=== PATIENT | female | born 1960 | race Caucasian/White ===

== ENCOUNTER 2019-02-24 16:30 | Emergency (ER) | payer MEDICARE, OTHER ==
[~2019-02-24] VITALS: Ht 177.8 cm; Wt 81.6 kg
[2019-02-24] MEDS ORDERED: SYNTHROID200 MCG ORAL (16:35)
[2019-02-24] MEDS ORDERED: GLUCOPHAGE1000 MG ORAL (16:35)
[2019-02-24] MEDS ORDERED: DIVALPROEX SOD250 MG PO (16:35)
[2019-02-24] MEDS ORDERED: VENLAFAXINE H37.5 M2 ORAL (16:35)
[2019-02-24] MEDS ORDERED: LOSARTAN POTAS100 MG ORAL (16:35)
[2019-02-24] MEDS ORDERED: Cefepime HCl 2 GM in NS 110 ML IV SCH (17:00)
[2019-02-24 17:07] VITALS: BP 135/109
--- NOTE | 2019-02-24 17:07 | NUR ---
ED Nurse Note: Pt BIBA from [facility] due to Elevated temperature and elevated HR. Rectal temp 98.3F upon arrival, HR 138, ERMD aware. AOx1, open eyes spontaneously and withdraws to pain. Pt has a sacral pressure ulcer wound. Heel protectors on bilateral heels but no wounds. Will cont to monitor.
[2019-02-24 17:31] LABS: APPEARANCE,URINE SLIGHTLY CLOUDY; BILIRUBIN, URINE NEGATIVE (NEGATIVE); COLOR,URINE AMBER; GLUCOSE, URINE (UA) NEGATIVE (NEGATIVE); KETONES,URINE NEGATIVE (NEGATIVE); LEUKOCYTE ESTERASE ,URINE 2+ (NEGATIVE); NITRITE,URINE NEGATIVE (NEGATIVE); PH,URINE 5 (4.5-8.0); PROTEIN,URINE 1+ (NEGATIVE); UROBILINOGEN,URINE 1 MG/DL (0.0-1.0)
[2019-02-24 17:38] VITALS: BP 120/63
[2019-02-24 17:40] LABS: ANION GAP 10 mmol/L (5-15); BLOOD UREA NITROGEN 28 mg/dL (7-18); CALCIUM 9.2 MG/DL (8.5-10.1); CARBON DIOXIDE 31 MMOL/L (21-32); CHLORIDE 94 MMOL/L (98-107); CREATININE 0.7 MG/DL (0.55-1.30); POTASSIUM 4.3 MMOL/L (3.5-5.1); SODIUM 135 MMOL/L (136-145)
[2019-02-24 17:49] LABS: HEMATOCRIT 32.2 % (37.0-47.0); HEMOGLOBIN 10.5 G/DL (12.0-16.0); MEAN CORPUSCULAR VOLUME 78 FL (80-99); PLATELET COUNT 698 K/UL (150-450); RED BLOOD COUNT 4.12 M/UL (4.20-5.40); RED CELL DISTRIBUTION WIDTH 14.1 % (11.6-14.8); WHITE BLOOD COUNT 21.4 K/UL (4.8-10.8)
--- NOTE | 2019-02-24 18:11 | NUR ---
ED Nurse Note: Lactic Reflex drawn and sent to lab.
[2019-02-24 18:23] LABS: ALANINE AMINOTRANSFERASE 31 U/L (12-78); ALBUMIN/GLOBULIN RATIO 0.5 (1.0-2.7); ALKALINE PHOSPHATASE 97 U/L (46-116); ASPARTATE AMINO TRANSFERASE 49 U/L (15-37); BILIRUBIN,TOTAL 0.5 MG/DL (0.2-1.0); CREATINE KINASE 76 U/L (26-308)
--- NOTE | 2019-02-24 18:39 | Emergency Room Report ---
History of Present Illness General Chief Complaint: Fever Source: Medical Record, EMS Present Illness HPI This patient presents from a [facility] facility for an elevated heart rate and a fever. This patient is nonverbal. She has a history of bipolar disorder, diabetes, high blood pressure. The patient would not speak to me at all. No other history is available. Allergies: Coded Allergies: AMOXICILLIN (Verified Allergy, Unknown, 02/24/19) Patient History Past Medical History: see triage record, DM, HTN, psych hx - Bipolar d/o, other - Hypothyroid Social History: Denies: smoking, alcohol use, drug use Reviewed Nursing Documentation: PMH: Agreed; PSxH: Agreed Nursing Documentation-PMH Hx Hypertension: Yes Hx Diabetes: Yes - HYPOTHYRODISM Review of Systems All Other Systems: limited Physical Exam Vital Signs Date Time Temp Pulse Resp B/P (MAP) Pulse Ox O2 Delivery O2 Flow Rate FiO2 02/24/19 16:26 99.9 142 20 110/74 (86) 95 Room Air Sp02 EP Interpretation: reviewed, normal General Appearance: no apparent distress, alert, GCS 15, non-toxic, Chronically Ill Head: normocephalic, atraumatic Eyes: bilateral eye normal inspection ENT: no angioedema Neck: normal inspection, full range of motion Respiratory: chest non-tender, lungs clear, normal breath sounds, no respiratory distress, no retraction, no accessory muscle use, speaking full sentences Cardiovascular #1: no edema, tachycardia Gastrointestinal: normal bowel sounds, non tender, soft, non-distended, no guarding, no rebound Rectal: deferred Musculoskeletal: back normal, gait/station normal, normal range of motion, non- tender Neurologic: alert, grossly normal Psychiatric: other - Flat, refusing to communicate Skin: no rash, warm/dry, well hydrated, pallor Medical Decision Making Diagnostic Impression: Primary Impression: Pyelonephritis Additional Impressions: Sepsis Tachycardia Lactic acidosis ER Course This patient meets criteria for sepsis. She has a urinary tract infection, elevated white blood cell count and is tachycardic. She was febrile earlier today at the correction facility. She is given aggressive IV fluids and broad-spectrum antibiotics. She did have significant improvement in her heart rate from the 140s on arrival to the 110s. Her blood pressure remained stable. The patient is a [place] patient so she was transferred to [place] via [facility]. This patient is critically ill. This patient required complex medical decision- making, aggressive intervention, extensive laboratory workup and monitoring. Critical care time: 40 minutes. Laboratory Tests Test 02/24/19 16:45 02/24/19 17:00 02/24/19 18:00 White Blood Count 21.4 K/UL (4.8-10.8) H Red Blood Count 4.12 M/UL (4.20-5.40) L Hemoglobin 10.5 G/DL (12.0-16.0) L Hematocrit 32.2 % (37.0-47.0) L Mean Corpuscular Volume 78 FL (80-99) L Mean Corpuscular Hemoglobin 25.6 PG (27.0-31.0) L Mean Corpuscular Hemoglobin Concent 32.7 G/DL (32.0-36.0) Red Cell Distribution Width 14.1 % (11.6-14.8) Platelet Count 698 K/UL (150-450) H Mean Platelet Volume 4.7 FL (6.5-10.1) L Neutrophils (%) (Auto) % (45.0-75.0) Lymphocytes (%) (Auto) % (20.0-45.0) Monocytes (%) (Auto) % (1.0-10.0) Eosinophils (%) (Auto) % (0.0-3.0) Basophils (%) (Auto) % (0.0-2.0) Sodium Level 135 MMOL/L (136-145) L Potassium Level 4.3 MMOL/L (3.5-5.1) Chloride Level 94 MMOL/L (98-107) L Carbon Dioxide Level 31 MMOL/L (21-32) Anion Gap 10 mmol/L (5-15) Blood Urea Nitrogen 28 mg/dL (7-18) H Creatinine 0.7 MG/DL (0.55-1.30) Estimate Glomerular Filtration Rate > 60 mL/min (>60) Glucose Level 106 MG/DL (74-106) Lactic Acid Level 3.00 mmol/L (0.4-2.0) H 1.80 mmol/L (0.66-2.22) Calcium Level 9.2 MG/DL (8.5-10.1) Total Bilirubin 0.5 MG/DL (0.2-1.0) Aspartate Amino Transferase (AST) 49 U/L (15-37) H Alanine Aminotransferase (ALT) 31 U/L (12-78) Alkaline Phosphatase 97 U/L (46-116) Total Creatine Kinase 76 U/L (26-308) Creatine Kinase MB 1.0 NG/ML (0.0-3.6) Creatine Kinase MB Relative Index 1.3 Troponin I 0.131 ng/mL (0.000-0.056) Total Protein 6.0 G/DL (6.4-8.2) L Albumin 2.0 G/DL (3.4-5.0) L Globulin 4.0 g/dL Albumin/Globulin Ratio 0.5 (1.0-2.7) L Thyroid Stimulating Hormone (TSH) 1.109 uiU/mL (0.358-3.740) Free Thyroxine 1.58 NG/DL (0.76-1.46) H Free Triiodothyronine 1.2 pg/mL (2.3-4.2) L Urine Color Anika Urine Appearance Slightly cloudy Urine pH 5 (4.5-8.0) Urine Specific [place] 1.015 (1.005-1.035) Urine Protein 1+ (NEGATIVE) H Urine Glucose (UA) Negative (NEGATIVE) Urine Ketones Negative (NEGATIVE) Urine Blood Negative (NEGATIVE) Urine Nitrite Negative (NEGATIVE) Urine Bilirubin Negative (NEGATIVE) Urine Ictotest Negative (NEGATIVE) Urine Urobilinogen 1 MG/DL (0.0-1.0) H Urine Leukocyte Esterase 2+ (NEGATIVE) H Urine RBC 0-2 /HPF (0 - 2) Urine WBC 20-30 /HPF (0 - 2) H Urine Squamous Epithelial Cells Moderate /LPF (NONE/OCC) H Urine Bacteria Moderate /HPF (NONE) H Microbiology Date/Time Source Procedure Growth Status 02/24/19 17:00 Nasal Nares - Final Complete 02/24/19 17:00 Nasal Nares - Final Complete EKG Diagnostic Results Rate: tachycardiac Rhythm: other - S.tachycardia ST Segments: no acute changes Rhythm Strip Diag. Results EP Interpretation: yes Rate: 110's Rhythm: no PVC's, no ectopy, other - S.tachycardia Chest X-Ray Diagnostic Results Chest X-Ray Diagnostic Results : Chest X-Ray Ordered: Yes # of Views/Limited/Complete: 1 View Indication: Other EP Interpretation: Yes Interpretation: no consolidation, no effusion, no pneumothorax, no acute cardiopulmonary disease Impression: No acute disease Electronically Signed by: Iraida Chavez DO Last Vital Signs Date Time Temp Pulse Resp B/P (MAP) Pulse Ox O2 Delivery O2 Flow Rate FiO2 02/24/19 17:38 98.3 102 20 120/63 100 Room Air Disposition: XFER S[facility]M HOSP Condition: Serious Referrals: [facility] (PCP) Iraida Chavez DO Feb 24, 2019 18:39
--- NOTE | 2019-02-24 19:15 | NUR ---
ED Nurse Note: Received report from SARATH Salazar. Pt kale, no distress noted. Day shift RN endorsed transfer to [place]. Awaiting ETA on pickup. IV lines saline locked at this time. Will continue to monitor.
[2019-02-24 19:30] VITALS: BP 112/66
[2019-02-24 20:30] VITALS: BP 121/83
--- NOTE | 2019-02-24 20:48 | NUR ---
ED Nurse Note: Pt still sleeping. Just received ETA for pickup to [place] at 2145. No distress noted. Will continue to monitor.
--- NOTE | 2019-02-24 21:05 | NUR ---
ED Nurse Note: Called and gave report and ETA to Cally CLEMENS. Awaiting ambulance arrival.
[2019-02-24 21:20] VITALS: BP 111/70
--- NOTE | 2019-02-24 21:30 | NUR ---
ED Nurse Note: Pt cleared by health care Provider for transfer to [facility]. Transfer packet was given and explained to ambulance personnel and verbalized understanding of teachings. All medical deviecs such as IV line maintained for continuity of care. Pt is AAO x1-2 and left with all personal belongings on gurney.
--- NOTE | 2019-02-25 08:28 | Diagnostic Imaging Report ---
Indication: Chest pain Technique: One view of the chest Comparison: none Findings: There is a band of atelectasis or scarring right lung base. Lungs and pleural spaces are clear. Heart size is normal. The aorta is tortuous Impression: Right basilar atelectasis or scarring. No acute process otherwise
--- NOTE | 2019-02-27 19:14 | Cardiology Report ---
APPROVED REPORT EKG Measurement Heart [id number] Unusual P axis and short PA, probable junctional tachycardia with premature atrial complexes Left axis deviation Abnormal ECG
== END 2019-02-24 21:27 | disposition short-term general hospital (02) ==
LOC: EDBD 16:30 → EMR 16:51 → EDBEDREQ 18:33 → EMR 21:27
DX: A41.9 Sepsis, unspecified organism (principal); N12 Tubulo-interstitial nephritis, not specified as acute or chronic; R00.0 Tachycardia, unspecified; E87.2 Acidosis; E11.9 Type 2 diabetes mellitus without complications; I10 Essential (primary) hypertension; E03.9 Hypothyroidism, unspecified; F31.9 Bipolar disorder, unspecified; Z88.1 Allergy status to other antibiotic agents
CPT/HCPCS: 36415; 71045; 80053; 81003; 82550; 82553; 83605; 84439; 84443; 84481; 84484; 85025; 86710; 87040; 87081; 87086; 93005; 96365; 96366; 99284; 99291